=== PATIENT | male | born 1950 | race Caucasian/White ===

== ENCOUNTER 2022-03-15 10:50 | Observation (INO) | payer MEDICARE ==
[~2022-03-15] VITALS: Ht 185.4 cm; Wt 84.6 kg
[2022-03-15 12:00] VITALS: BP 124/71
[2022-03-15] MEDS ORDERED: SITA1TAB6 PO (13:27)
[2022-03-15] MEDS ORDERED: PANT40TA54 PO (13:27)
[2022-03-15] MEDS ORDERED: CARV25TA PO (13:27)
[2022-03-15] MEDS ORDERED: AMLO-258 PO (13:27)
[2022-03-15] MEDS ORDERED: RIVA15TA PO (13:27)
[2022-03-15] MEDS ORDERED: LISI40TA9 PO (13:27)
[2022-03-15] MEDS ORDERED: SIMV-43 PO (13:27)
[2022-03-15] MEDS ORDERED: ICOS1CAP PO (13:27)
[2022-03-15] MEDS ORDERED: ACET325T51 PO (13:27)
[2022-03-15] MEDS ORDERED: DIGO250T73 PO (13:27)
[2022-03-15 16:00] VITALS: BP 131/79
[2022-03-15] MEDS ORDERED: OXYMETAZOLINE HCL SPRAY 15 ML BOTTLE EN PRN (18:30)
[2022-03-15 19:06] VITALS: BP 153/80
[2022-03-15] MEDS ORDERED: SIMVASTATIN 20 MG TABLET PO SCH (21:00)
[2022-03-15] MEDS: CARVEDILOL 25 MG TABLET PO SCH (21:32)
[2022-03-16 00:06] VITALS: BP 130/70
[2022-03-16 03:03] VITALS: BP 135/66
[2022-03-16 03:31] LABS: BASOPHILS % (AUTO) 0.1 % (0.0-5.0); EOSINOPHILS % (AUTO) 5.4 % (0.0-8.0); HEMATOCRIT 40.5 % (42-54); MEAN CORPUSCULAR HEMOGLOBIN 27.8 pg (27.0-33.0); MEAN CORPUSCULAR HGB CONC 32.3 g/dL (32.0-36.0); MEAN CORPUSCULAR VOLUME 85.8 fL (79-99); MONOCYTES % (AUTO) 9.5 % (3.0-13.0); NEUTROPHILS % (AUTO) 70.7 % (40.0-77.0); PLATELET COUNT (AUTO) 135 K/uL (130-400); RED BLOOD CELL COUNT(AUTO) 4.72 MIL/uL (4.50-6.20); RED CELL DISTRIBUTION WIDTH 13.2 % (11.0-15.5); WHITE BLOOD COUNT (AUTO) 7.8 K/uL (4.8-10.8)
[2022-03-16 03:48] LABS: ALBUMIN 3.6 g/dL (3.5-5.0); BILIRUBIN,TOTAL 0.5 mg/dL (0.2-1.0); CREATININE 1.3 mg/dL (0.5-1.5); POTASSIUM 3.8 mmol/L (3.5-5.1); THYROID STIMULATING HORMONE 4.83 uIU/mL (0.36-3.74)
[2022-03-16] MEDS: CARVEDILOL 25 MG TABLET PO SCH ×2 (08:07→08:48)
[2022-03-16] MEDS: LISINOPRIL 40 MG TABLET PO SCH ×2 (08:09→08:48)
[2022-03-16] MEDS: AMLODIPINE 5 MG TAB PO SCH ×2 (08:09→08:49)
[2022-03-16 08:10] VITALS: BP 141/84
[2022-03-16] MEDS: RIVAROXABAN 15 MG TABLET PO SCH ×2 (08:10→08:49)
[2022-03-16] MEDS ORDERED: DIGOXIN 125 MCG TABLET PO SCH (09:00)
[2022-03-16] MEDS ORDERED: RIVAROXABAN 2.5 MG TABLET PO SCH (09:00)
[2022-03-16] MEDS ORDERED: DIGOXIN 125 MCG TAB PO SCH (09:00)
[2022-03-16 12:15] VITALS: BP 113/61
[2022-03-16] MEDS ORDERED: ASPIRIN 81 MG EC TAB PO SCH (14:00)
== END 2022-03-16 15:32 | disposition home or self-care (01) ==
LOC: 2AH 10:55
PROVIDERS: ADMIT Internal Medicine; ATTEND Internal Medicine
DX: R07.89 Other chest pain (principal); R06.00 Dyspnea, unspecified; I48.20 Chronic atrial fibrillation, unspecified; I20.0 Unstable angina; I10 Essential (primary) hypertension; E78.5 Hyperlipidemia, unspecified; J44.9 Chronic obstructive pulmonary disease, unspecified; E11.9 Type 2 diabetes mellitus without complications; I34.0 Nonrheumatic mitral (valve) insufficiency; F17.200 Nicotine dependence, unspecified, uncomplicated; Z79.01 Long term (current) use of anticoagulants; Z79.899 Other long term (current) drug therapy
CPT/HCPCS: 36415; 71046; 80053; 80061; 82948 ×2; 84443; 84484 ×2; 85025; 93306; 93356; 99284; G0378 ×28; G0379